=== PATIENT | female | born 1975 | race Caucasian/White ===

== ENCOUNTER 2023-09-29 21:01 | Inpatient (IN) | payer MEDICAID, OTHER ==
[~2023-09-29] VITALS: Ht 160 cm; Wt 83.5 kg
[2023-09-29 21:43] VITALS: BP 159/73; PULSE 104; RESP 22; TEMP 97.5; O2SAT 97
[2023-09-29] MEDS ORDERED: NACL 0.9% 1,000 ML IV ONE (22:25)
[2023-09-29] MEDS ORDERED: IPRATROPIUM 0.02% 0.5 MG/2.5 ML NEBU INH ONE (22:25)
[2023-09-29] MEDS ORDERED: ALBUTEROL 0.083% 2.5 MG/3 ML NEBU INH ONE (22:25)
[2023-09-29] MEDS ORDERED: predniSONE 20 MG TAB PO ONE (22:25)
[2023-09-29 22:39] VITALS: PULSE 91; RESP 28; O2SAT 100
[2023-09-29 22:43] LABS: BASOPHILS % (AUTO) 0.3 % (0.0-2.0); EOSINOPHILS # (AUTO) 1.7 K/uL (0-0.4); EOSINOPHILS % (AUTO) 11.4 % (0.0-4.0); HEMATOCRIT 39.4 % (36-48); HEMOGLOBIN 12.6 g/dL (12.0-16.0); LYMPHOCYTES # (AUTO) 2.3 K/uL (2.5-16.5); LYMPHOCYTES % (AUTO) 15.6 % (20.5-51.1); MEAN CORPUSCULAR HEMOGLOBIN 24 pg (27-31); MEAN CORPUSCULAR HGB CONC 32 g/dL (33-37); MEAN CORPUSCULAR VOLUME 76.4 fL (80-94); NEUTROPHILS # (AUTO) 9.6 K/uL (1.8-7.7); NEUTROPHILS % (AUTO) 65.7 % (42.2-75.2); PLATELET COUNT (AUTO) 288 K/uL (140-450); RED BLOOD CELL COUNT(AUTO) 5.16 MIL/uL (4.20-5.40); RED CELL DISTRIBUTION WIDTH 23.5 % (11.6-13.7); WHITE BLOOD COUNT (AUTO) 14.6 K/uL (4.8-10.8)
[2023-09-29 23:00] LABS: ALANINE AMINOTRANSFERASE 37 U/L (12-78); ALBUMIN 3.9 g/dL (3.4-5.0); ALKALINE PHOSPHATASE 100 U/L (50-136); ANION GAP 12.5 (8-16); ASPARTATE AMINOTRANSFERASE 28 U/L (15-37); CALCIUM 8.7 mg/dL (8.5-10.1); CARBON DIOXIDE 28.3 mmol/L (21-32); CHLORIDE 102 mmol/L (98-107); CREATININE 0.6 mg/dL (0.6-1.3); GFR ARICAN-AMERICAN 137 mL/min (>90); GFR NON ARICAN-AMERICAN 113 mL/min (>90); GLUCOSE 107 mg/dL (74-106); POTASSIUM 3.8 mmol/L (3.5-5.1); SODIUM SERUM 139 mmol/L (136-145); TOTAL BILIRUBIN 0.5 mg/dL (0.0-1.0); TOTAL PROTEIN, SERUM 8.3 g/dL (6.4-8.2); UREA NITROGEN, BLOOD 12 mg/dL (7-18)
[2023-09-29] MEDS ORDERED: predniSONE 20 MG TAB ONE (23:40)
[2023-09-30] VITALS (8 sets, daily range): BP systolic 131–135; BP diastolic 74–76; PULSE 78–101; RESP 18–25; TEMP 96.6–98.9; O2SAT 93–100
[2023-09-30] MEDS ORDERED: IPRATROPIUM 0.02% 0.5 MG/2.5 ML NEBU INH ONE (00:10)
[2023-09-30] MEDS ORDERED: ALBUTEROL 0.083% 2.5 MG/3 ML NEBU INH ONE (00:10)
[2023-09-30] MEDS ORDERED: MAG SULF 2000 MG/WATER PREMIX 50 ML IV ONE (00:10)
[2023-09-30] MEDS ORDERED: IPRATROPIUM 0.02% 0.5 MG/2.5 ML NEBU INH PRN (05:30)
[2023-09-30] MEDS ORDERED: HYDROcodone/APAP 5/325 MG 1 TAB TAB PO PRN (05:30)
[2023-09-30] MEDS ORDERED: ONDANSETRON 4 MG/2 ML VIAL IVP PRN (05:30)
[2023-09-30] MEDS ORDERED: ACETAMINOPHEN 325 MG TAB PO PRN (05:30)
[2023-09-30] MEDS ORDERED: ALBUTEROL 0.083% 2.5 MG/3 ML NEBU INH PRN (05:30)
[2023-09-30] MEDS ORDERED: LORazepam 1 MG TAB PO PRN (05:30)
[2023-09-30] MEDS: DOCUSATE SODIUM 100 MG GELCAP PO SCH (10:59)
[2023-09-30] MEDS: AZITHROMYCIN 250 MG TAB PO SCH (10:59)
[2023-09-30] MEDS: methylPREDNISolone SS 40 MG/ML VIAL IVP SCH ×2 (13:39→20:18)
[2023-10-01] VITALS: BP 128/68; PULSE 86; RESP 18; TEMP 97; O2SAT 95
[2023-10-01 04:00] VITALS: BP 119/74; PULSE 80; PULSE 98; RESP 18; TEMP 97; O2SAT 96
[2023-10-01] MEDS: methylPREDNISolone SS 40 MG/ML VIAL IVP SCH (05:53)
[2023-10-01 08:00] VITALS: BP 134/81; PULSE 77; PULSE 78; RESP 18; TEMP 96.9; O2SAT 97
[2023-10-01 08:02] VITALS: O2SAT 94
[2023-10-01] MEDS: AZITHROMYCIN 250 MG TAB PO SCH (09:17)
[2023-10-01] MEDS: DOCUSATE SODIUM 100 MG GELCAP PO SCH (09:18)
[2023-10-01 09:59] LABS: BASOPHILS % (AUTO) 0.1 % (0.0-2.0); HEMATOCRIT 39.3 % (36-48); HEMOGLOBIN 12.4 g/dL (12.0-16.0); LYMPHOCYTES # (AUTO) 1.1 K/uL (2.5-16.5); LYMPHOCYTES % (AUTO) 9.4 % (20.5-51.1); MEAN CORPUSCULAR HEMOGLOBIN 24 pg (27-31); MEAN CORPUSCULAR HGB CONC 31 g/dL (33-37); MEAN CORPUSCULAR VOLUME 77.6 fL (80-94); MONOCYTES # (AUTO) 0.2 K/uL (0.8-1.0); MONOCYTES % (AUTO) 1.5 % (1.7-9.3); NEUTROPHILS # (AUTO) 10.4 K/uL (1.8-7.7); PLATELET COUNT (AUTO) 317 K/uL (140-450); RED BLOOD CELL COUNT(AUTO) 5.07 MIL/uL (4.20-5.40); RED CELL DISTRIBUTION WIDTH 23.7 % (11.6-13.7); WHITE BLOOD COUNT (AUTO) 11.7 K/uL (4.8-10.8)
[2023-10-01 10:07] LABS: CARBON DIOXIDE 24.9 mmol/L (21-32); CREATININE 0.7 mg/dL (0.6-1.3); POTASSIUM 3.9 mmol/L (3.5-5.1)
[2023-10-01] MEDS ORDERED: AZIT250T3 PO (13:14)
[2023-10-01] MEDS ORDERED: PRED20TA5 PO (13:15)
[2023-10-01] MEDS ORDERED: FLUT1DSK2 IH (13:16)
[2023-10-01] MEDS ORDERED: ALBU0.0912 INH (13:16)
[2023-10-01 13:43] VITALS: BP 148/81; PULSE 92; RESP 18; TEMP 98; O2SAT 98
[2023-10-01] MEDS ORDERED: methylPREDNISolone SS 40 MG/ML VIAL IVP SCH (21:00)
== END 2023-10-01 14:25 | disposition home or self-care (01) | DRG 141 ==
LOC: MED 21:01 → MTU 09-30 05:34 → MMU 09-30 06:39 → OBSVTOIN 09-30 14:00
PROVIDERS: ADMIT Student in an Organized Health Care Education/Training Program; ATTEND Student in an Organized Health Care Education/Training Program
DX: J45.901 Unspecified asthma with (acute) exacerbation (principal); J96.01 Acute respiratory failure with hypoxia; R65.11 Systemic inflammatory response syndrome (SIRS) of non-infectious origin with acute organ dysfunction; Z20.822 Contact with and (suspected) exposure to COVID-19; D72.829 Elevated white blood cell count, unspecified
CPT/HCPCS: 36415; 71045; 80048; 80053; 83880; 84484; 85025; 87081; 93005; 94640; 94644; 96361; 96365; 99291; J0696; J1644; J2920; J3475; J7060; J7512; J7613; J7644